=== PATIENT | female | born 1950 | race Caucasian/White ===

== ENCOUNTER 2017-07-13 09:58 | Day surgery (SDC) | payer MEDICARE, BC ==
[2017-07-13] MEDS ORDERED: DEMEROL 50 MG IJ ONE ×2 (09:59)
[2017-07-13] MEDS ORDERED: VERSED 5 MG/5 ML IV ONE (09:59)
[2017-07-13] MEDS ORDERED: Sodium Chloride 0.9% 1000 ML 1,000 ML IV SCH (10:30)
[2017-07-13] MEDS ORDERED: D5W/0.45NS W/ 20mEq KCl 1000 ML 1,000 ML IV SCH (11:00)
[2017-07-13 11:03] LABS: Mean Cell Volume 86.1 fl (78-100); Mean Platelet Volume 10.4 fl (6-9.5); Platelet Count 328 K/mm3 (150-450); Red Blood Count 5.46 M/mm3 (4.1-5.4); Red Cell Distribution Width 17.2 % (11.5-14.0); White Blood Count 11.1 K/mm3 (4.0-10.5)
[2017-07-13 11:06] LABS: Mean Corpuscular Hemoglobin 27.6 pg (26-32)
[2017-07-13 11:13] LABS: ALBUMIN 3.9 g/dL (3.4-5.0); ALKALINE PHOSPHATASE 79 U/L (46-116); ANION GAP 16.6 MEQ/L (5-15); BLOOD UREA NITROGEN 11 mg/dL (9-20); CHLORIDE 101 mEq/L (98-107); Carbon Dioxide 28.8 mEq/L (21-32); Glucose 142 MG/DL (70-110); Potassium 3.5 mEq/L (3.5-5.1); SGOT/AST 17 U/L (15-37); SGPT/ALT 11 U/L (12-78); SODIUM 143 mEq/L (136-145)
[2017-07-13 15:43] VITALS: BP 122/73; PULSE 54; O2SAT 97
--- NOTE | 2017-07-14 09:15 | OP ---
SURGERY DATE/TIME: 07/13/2017 1200 PREOPERATIVE DIAGNOSIS: Severe stricture with dehydration and weight loss. POSTOPERATIVE DIAGNOSIS: Severe stricture less than 20, postoperative has been stretched to a size 40. PROCEDURES: 1) EGD. 2) Balloon dilatation. 3) Nelson dilatation size 40. SURGEON: Cristóbal Larson M.D. ANESTHESIA: IV sedation. COMPLICATIONS: None. CONDITION: Stable. INDICATION: A 67 year-old has really been down being dehydrated. She could not swallow. She is presumed to have a stricture. DESCRIPTION OF PROCEDURE: She was taken to endoscopy suite. Left lateral decubitus position. IV sedation titrated. Oximetry was kept over 90%. Time out performed. Scope introduced. There was a complete occlusion near the gastroesophageal junction. It looked like about a size 14. The balloon was placed, was able to be threaded across. It was able to inflated to stage 1 atmosphere for 45 seconds. It was open. The scope was able to be passed through. This stricture was grossly benign. There was a hiatal hernia about 3 inches and it was above this. The stomach was grossly normal. The scope was withdrawn. Size 40 Nelson was passed through and passed through satisfactorily. IMPRESSION: She has a severe stricture. It is grossly benign. It has been initially dilated. She is scheduled for 07/31/2017. I think she needs to keep this appointment. She will certainly tighten down some. She can be restretched at that time and she may be able to be stretched more up to 44 to 46 at that point.
== END 2017-07-13 15:50 | disposition home or self-care (01) ==
LOC: SDC 09:58
PROVIDERS: ATTEND Surgery
PROC: 0D758ZZ Dilation of Esophagus, Via Natural or Artificial Opening Endoscopic (ICD-10-PCS; principal; 2017-07-13)
PROC: 0D798ZZ Dilation of Duodenum, Via Natural or Artificial Opening Endoscopic (ICD-10-PCS; 2017-07-13)
PROC: 0D768ZZ Dilation of Stomach, Via Natural or Artificial Opening Endoscopic (ICD-10-PCS; 2017-07-13)
DX: K22.2 Esophageal obstruction (principal); R13.10 Dysphagia, unspecified; E86.0 Dehydration; R63.4 Abnormal weight loss; Z79.899 Other long term (current) drug therapy
CPT/HCPCS: 36415; 85027; 80053; 43249; 43245; C1726; 88305; J2175; J2250

== ENCOUNTER 2017-07-31 09:33 | Day surgery (SDC) | payer MEDICARE, BC ==
--- NOTE | 2017-07-31 08:08 | HP ---
DATE OF SURGERY: 07/31/2017 HISTORY OF PRESENT ILLNESS: The patient is a 67 year-old female who over the past three to four weeks had problems with dehydration, sounds like something stuck in upper esophagus. She was admitted by Dr. Mendoza and reportedly underwent dilatation by Dr. Larson who was unable to complete the upper endoscopy so wanted her back on the schedule. She had CT neck that did not show any obvious mass or adenopathy. She had CT PET scan that did not show anything. She had been worked up for lung mediastinal mass issues and biopsied for lung CA but no obvious neck mass or adenopathy. PAST MEDICAL HISTORY: She had diabetes, hypertension, hypothyroidism, anxiety, atherosclerotic heart disease, hyperlipidemia, chronic pain. History of myocardial infarction. Negative for esophageal cancer. PAST SURGICAL HISTORY: Back surgery. Hernia surgery. Appendectomy. Vascular surgery in the past. MEDICATIONS: She has been on Albuterol for chronic obstructive pulmonary disease, Alprazolam, aspirin, atorvastatin for hypercholesterolemia, bisoprolol for hypertension, gabapentin, levothyroxine for some hypothyroidism, lisinopril, Metformin, omeprazole, ProAir HFA. ALLERGIES: NKDA. FAMILY HISTORY: Negative in regards to this problem. SOCIAL HISTORY: Half a pack a day smoker. Denies alcohol abuse. REVIEW OF SYSTEMS: Twelve systems reviewed per admission assessment. PHYSICAL EXAMINATION: GENERAL: No acute distress. HEENT: Sclerae nonicteric. NECK: No JVD. CHEST: Equal excursion, nonlabored breathing. CVS: Regular rate and rhythm. ABDOMEN: Soft. No peritoneal signs. EXTREMITIES: No significant edema. NEURO: Alert, moving extremities symmetrically. No gross motor deficits noted. IMPRESSION: Dysphagia. I feel the patient will benefit from upper endoscopy, possible biopsy, possible dilation. Risks and benefits explained in detail including but not limited to bleeding or infection, risk of bowel injury or perforation possibly requiring open procedure, risk of ongoing morbidity, small risk of missed or nondiagnosis or incomplete exam possibly requiring barium enema, other studies or procedures, general risk of anesthesia or sedation but not limited to. She understands and agrees to the planned procedure and will proceed with EGD possible biopsy, possible dilatation as an outpatient.
[~2017-07-31 09:33] MED LIST: Lactated Ringers 1,000 ML IV ONE; Lactated Ringers 1,000 ML IV SCH
[2017-07-31] MEDS ORDERED: DIPRIVAN 200 MG/20 ML IV ONE (09:34)
[2017-07-31] MEDS ORDERED: Ketamine HCl 50 MG/ML IJ ONE (09:34)
[2017-07-31] MEDS ORDERED: Xopenex 1.25 MG/0.5 ML UD NEBULE IH ONE (10:01)
[2017-07-31 10:15] VITALS: O2SAT 96
[2017-07-31] MEDS ORDERED: Sodium Chloride 3 ML UD NEBULES IH SCH (10:15)
[2017-07-31] MEDS ORDERED: SUBLIMAZE 100 MCG/2 ML ONE (12:50)
[2017-07-31 14:16] VITALS: BP 166/82; PULSE 57
--- NOTE | 2017-08-01 08:01 | OP ---
SURGERY DATE/TIME: 07/31/2017 1205 PREOPERATIVE DIAGNOSES: 1) Dysphagia. History of esophageal stricture. 2) Lung mass followed by Dr. Ling and Dr. Al. POSTOPERATIVE DIAGNOSES: 1) Dysphagia. History of esophageal stricture. 2) Lung mass followed by Dr. Ling and Dr. Al. PROCEDURES: 1) EGD with cold biopsy of the esophagus. 2) Esophageal balloon dilatation esophageal stricture at mid esophagus about 30 cm up to size 18 balloon dilator. SURGEON: Dr. Bharathi Collier. ANESTHESIA: MAC. ESTIMATED BLOOD LOSS: Minimal. INDICATIONS: As noted above. Risks and benefits explained in detail and not limited to and consent obtained. The patient had been previously evaluated by Dr. Larson a couple weeks ago, dilated with a balloon. He was able to get the scope through at a size 40 dilator. He felt she would need redilated at this time. She said she has not had significant improvement after past dilatation. General risk of bleeding, infection, risk of bowel injury or perforation possibly requiring open procedure, risk of ongoing morbidity, risk of missed or nondiagnosis but not limited to, as well as risk of anesthesia or aspiration, bleeding, perforation but not limited to. Consent had been obtained. DESCRIPTION OF PROCEDURE AND FINDINGS: The patient is taken to the endoscopy room. MAC anesthesia introduced. She denied any further questions. After official time out and no disagreement with planned procedure, bite block positioned. Video gastroscope easily passed down the proximal esophagus. At about 30 cm from the incisors there was a narrowed area. The scope was able to be passed through this more distal esophagus. Right below the gastroesophageal junction it appeared to be unremarkable at this time. The scope was able to be passed down into the patent pylorus to the junction of the second and third portion of the duodenum. On withdrawal of the scope duodenum and duodenal bulb grossly unremarkable. Back in the stomach she had some mild distal esophageal erythema. No obvious evidence of any ulcers. On retroflex she had a little bit of a hiatal hernia. The scope was straightened. The gastroesophageal junction was somewhere around 40 cm. There was some mild esophagitis but no gross evidence of Raya's. The scope was pulled back to a narrowed area back at about 30 cm from the incisors. It was felt that this area definitely needed to be dilated up. This area had more of a smooth appearance rather than a roughened carcinoma-type appearance. It was felt that definitely as she is symptomatic needed dilated. The scope passed back down in the stomach. Balloon catheter advanced. It was then carefully pulled back up to the esophageal stricture narrowed area about 30 cm and gradually inflated to size 15 for 45 seconds to a minute and then up to size 15.5 for 45 seconds to a minute and then finally to size 18 for 2 1/2 minutes. The balloon was then deflated. The balloon catheter removed. The scope was then much more easily passed down through this narrowed area into the stomach and then gradually pulled back. There had been some small amount of ooze from superficial surface but there did not appear to be any evidence of any full thickness issues or injury. Cold biopsy had been taken of the esophagus at the edge of narrowed area. Good hemostasis was noted. Again, this was quite smooth area not the typical appearance of carcinoma but there was a prior biopsy the staff said showed just food particles. I would like to go ahead and send another biopsy at this point. Again, appeared to have adequate hemostasis. The area was much more widely patent than it had been preoperatively. The scope was carefully gradually withdrawn. There were no signs of any large polyps, masses or obstructing lesions. She definitely had an esophageal stricture about 30 cm. Biopsy had been taken. This area seemed to be quite smooth other than a roughened such as a carcinoma but final path is pending. The remainder of the more proximal esophagus grossly unremarkable at this time.
== END 2017-07-31 14:56 | disposition home or self-care (01) ==
LOC: SDC 09:33
PROVIDERS: ATTEND Surgery
PROC: 0D728ZZ Dilation of Middle Esophagus, Via Natural or Artificial Opening Endoscopic (ICD-10-PCS; principal; 2017-07-31)
PROC: 0DB58ZX Excision of Esophagus, Via Natural or Artificial Opening Endoscopic, Diagnostic (ICD-10-PCS; 2017-07-31)
DX: R13.10 Dysphagia, unspecified (principal); R91.8 Other nonspecific abnormal finding of lung field
CPT/HCPCS: 36415; 43249; 43239; C1726; 00740; 88305; J2704; J3010; A9270-GY